=== PATIENT | male | born 1995 | race Caucasian/White ===

== ENCOUNTER 2022-10-10 20:09 | Emergency (ER) | payer BC, SELFPAY ==
--- NOTE | 2022-10-10 20:20 | W.ED.GENAD ---
Discharge Plan Discharge Details Chief Complaint: PsychEval ED Provider: Vanessa Ac Home Meds and New Rx's Prescriptions: No Action olanzapine 5 mg Tablet 5 mg PO Q6H PRN MDD 20 PRN (Reason: Agitation) lorazepam 0.5 mg Tablet 0.5 mg PO 3XD PRN cholecalciferol (vitamin D3) [Vitamin D3] 25 mcg (1,000 unit) Capsule 25 mcg PO 1XD Medical Decision Making Patient is a 27-year-old male reported to have history of schizophrenia and bipolar, brought in by state police, with concerns for manic episode. Patient was recently hospitalized at institution in [facility]. She left there and was running on a busy street. Went into a local store, was shaving in the isles, went behind the counter to try on sunglasses. Was found to be acutely manic and was taken into police custody for safety. He has not been taking any of his medications. On exam, patient is acutely manic, constantly rambling with inappropriate speech. Talking about violence and how violence are likely the downfall of the earth. Then spits on his own face and asks is this cum or venom? either way, I get to taste it. He is frequently moving. Requesting fluids. Moving all extremities. No evidence of head trauma. He is agreeable to medications. Patient spit out the p.o. Haldol because it tasted bad. Was then given liquid and reported that it was laced with cyanide. Will attempt giving him p.o. Zyprexa. Despite patient initially saying that he would be amenable to oral medications, he spit out or refused all medications offered him. We continue to try verbal de-escalation but patient is simply too manic to be able to cooperate with any medical care. At this point, please or not able to leave and patient's not can be able to be evaluated by mental health appropriately given his high manic state. We will move forward with IM Haldol. Patient was given 5 mg IM Haldol with police, nursing staff and myself present. Patient did not actually fight to have this done and did not need physical restraint during the injection. He tolerated this well and is currently sleeping but easily arousable. He did allow for blood work to be completed. Patient does have an elevated white count of 14.8. Denies any fevers, chills, headache rash, GI or URI upset. CMP without significant abnormality. Salicylates, acetaminophen ethyl alcohol negative. Urinalysis and COVID testing pending. At the end of my shift, care transition to Dr. Glass with ultimate disposition pending. Patient is involuntarily admitted. Has been sent here on a warrant, the emergency exam has been completed. One-to-one sitter is with the patient. He is resting comfortably after the IM Haldol. Mom will be in contact tomorrow but can be reached at [phone], Swathi Ck. HPI General Date/Time Provider Initiated Documentation: 10/10/22 20:20. Limitations to Documentation: altered mental status. Information obtained by: patient, police, RN/MD (MH at bedside) and RN notes reviewed. HPI Narrative: Patient brought in by mental health and police with concern for manic episode. Has been acting very erratically, not taking his medications. Was found to be running in the street. He then went into local drugstore and was acting erratically. Mental health does not feel that patient has capacity. He was recently discharged from [facility], had been in [facility] in [place], [place]. Related Data Home Medications Medication Instructions Recorded Confirmed cholecalciferol (vitamin D3) 25 25 mcg PO 1XD 10/10/22 10/10/22 mcg (1,000 unit) capsule (Vitamin D3) lorazepam 0.5 mg tablet 0.5 mg PO 3XD PRN 10/10/22 10/10/22 olanzapine 5 mg tablet 5 mg PO Q6H PRN PRN Agitation 10/10/22 10/10/22 Allergies Allergy/AdvReac Type Severity Reaction Status Date / Time No Known Allergies Allergy Unverified 10/10/22 21:53 General Stated Complaint: PsychEval YOLANDA: 2 Review of Systems Narrative: ROS limited secondary to patients current mental status Constitutional Constitutional: Reports as per HPI, Denies chills, Denies fever(s) and Denies headache(s) ENT Ears, Nose, Mouth, and Throat: Denies headache(s) Cardiovascular Cardiovascular: Reports as per HPI and Denies chest pain Respiratory Respiratory: Reports as per HPI and Denies cough Integumentary/Breasts Skin/Breast: Reports as per HPI and Denies rash Neurologic Neurologic: Denies headache(s) and Denies paresthesias Psychiatric Psychiatric: Reports mood swings, Reports paranoia, Reports homicidal ideation and Reports suicidal ideation PFSH Social History Smoking risk assessment performed?: No Exam Const General: healthy appearing, comfortable, no acute distress, well developed and disheveled Nutritional Appearance: average body habitus and well nourished Orientation: alert and awake Eyes General: appearance normal, both eyes and all related structures Pupils: PERRL Neck Neck: no meningeal signs Resp Effort & Inspection: normal respiratory effort, able to speak in complete sentences and no respiratory distress Auscultation: clear to auscultation bilaterally, no rales, no rhonchi and no wheezes Cardio Rate: regular rate Rhythm: regular rhythm Heart Sounds: S1 normal and S2 normal Skin General skin exam: no rashes or lesions noted Trauma: no lacerations or abrasions Neuro General: patient alert and patient awake Cognition: normal cognition Speech: speech normal Gait: normal gait Psych Appearance: disheveled Speech and Movement: agitated Mood: manic mood Affect: labile affect, animated and irritable affect Attitude: cooperative Thought Process: flight of ideas, illogical and tangential Thought Content: ideas of reference Insight: poor Judgment: poor Course Vital Signs Vital signs: Comment unable to obtain v/s, pt beacame agitated and refused 10/10/22 20:15
[2022-10-10] MEDS: Haloperidol 5 MG/ML VIAL 4 MG IM (22:07)
[2022-10-10 22:56] LABS: Abs Immature Grans 0.06 10^3/uL (0.0-0.06); Absolute Basophil Count 0.04 10^3/uL (0.0-0.2); Absolute Eosinophil Count 0.06 10^3/uL (0.0-0.7); Absolute Lymphocyte Count 2.41 10^3/uL (1.2-3.4); Absolute Monocyte Count 1.11 10^3/uL (0.1-0.8); Basophils % 0.3; Eosinophils % 0.4; HCT 43.8 % (40.0-50.0); HGB 14.5 g/dL (13.5-17.5); Immature Grans % 0.4; Lymphocytes % 16.3; MCH 29.7 pg (27.0-33.0); MCHC 33.1 % (32.0-36.0); MCV 90 fL (80-95); MPV 9.1 fL (8.0-11.0); Monocytes % 7.5; Neutrophils % 75.1; Platelet Count 309 10^3/uL (130-400); RBC 4.89 10^6/uL (4.36-5.78); RDW 12.4 % (11.8-14.1); RDW-SD 40.8 fL
[2022-10-10 22:58] LABS: Absolute Neutrophil Count 11.11 10^3/uL (1.2-6.7)
[2022-10-10 23:18] LABS: Acetaminophen < 2 ug/mL (10-30); Salicylate < 2.8 mg/dL (<2.8)
[2022-10-10 23:25] LABS: ALT 22 U/L (16-63); AST 15 U/L (15-37); Albumin 4.3 g/dL (3.4-5.0); Alkaline Phosphatase 64 U/L (46-116); Anion Gap 10.9 mmol/L (3-11); BUN 14 mg/dL (7-18); Bilirubin, Total 0.8 mg/dL (0.2-1.0); CO2 24.1 mmol/L (21.0-32.0); CREATININE 0.9 mg/dL (0.70-1.30); Calcium 9.3 mg/dL (8.5-10.1); Chloride 103 mmol/L (98-107); ETHANOL BLOOD < 3.0 mg/dL (<10); Estimated GFR 119.31 (mL/min/1.73m2); Glucose 119 mg/dL (74-106); Potassium 3.8 mmol/L (3.5-5.1); Sodium 138 mmol/L (136-145); TSH (W/Ref FT4) 0.81 uIU/mL (0.36-3.74); Total Protein 7.5 g/dL (6.4-8.2)
--- NOTE | 2022-10-10 23:39 | PDOC.MHCN ---
Date of service: 10/10/22 Time of Service: 20:00 Mental Health Emergency Note Release [facility] release signed:: No Reason for Visit Mental health warrant, please see warrant for more information. Client is presenting with dangerous manic behaviors. In the last 2 weeks has the pt presented for ES prior to today?: No Client Information Client is: New Non Suicidal Self Injury Current: No History: No Safety Risk/Harm to Self or Others Current Ideation to Harm Self or Others: No Risk: Does risk to harm exist?: yes. Access to means: No. Risk: Low Risk Duty to warn indicated: No Asssessment/Mental Status Appearance: Disheveled and Poor hygiene Attitude: Passive, Demanding, Guarded and Hostile Behavior: Hyperactivity, Poor impulse control and Agitated Speech: Pressured, Loud and Incoherent Affect: Inappropriate and Cogruent with mood Mood: Euphoric, Elevated and Irritable Thought process: Loose associations, Flight of ideas and Tangential Hallucinations: No Delusions: yes, Mosque, Persectory/Paranoid and Bizarre Attention: Poor concentration Perception: Derealization Orientation: Disoriented in Situation Memory: Intact Insight: Poor Judgement: Poor Neurovegetative Symptoms Sleep: No change Appetitie: No change Interests: No change Energy: No change Libido: Not applicable Substance Use: Do you use nicotine?: Yes Have you used substances in the last 7 days?: No Additional Issues: Assaultive/Threatening Behavior: No Medical Concerns: No Client engaged in active self harm w/weapon: No Threatening to run away: No Child reported abuse/neglect: No Voluntarily presenting for services: No Domestic violence is a concern: No Extreme Psychosis or extreme behavior is present: Yes Impression Client is in need of medication stabilization and emergency evaluation by psychiatrist. Please see warrant for further details of dangerous behaviors leading to hospitalization. Plan/Disposition Recommended Disposition: Hospitalization No and Psych Screening. Plan: Client will remain at [facility] on involuntary hold until seen by psychiatrist. [facility] will be sending referrals veronica, 10/10/22. Person reported agreement to plan: No Reports/communication Outcome discussed with: ED/Personnel and Other ([facility])
--- NOTE | 2022-10-11 03:31 | NUR.NOTE ---
lives at [facility]-a assisted for mental health owned by Giuseppe Bagley-who knows pt very well. Yudi's number is [phone]-has known him for 3 years. pt's therapist is Ginger Oakes [phone].Nursing Note:
--- NOTE | 2022-10-11 06:54 | ED.PROG_ITS ---
Date of service: 10/11/22 Time of Service: 08:00 Medical Decision Making 0800 --no events overnight. Patient endorsed to nursing this morning that he needs to receive his medications at specific times. His medications with specific times have been ordered. Patient had stated he also needs to see the medication as he takes the lithium which has a red stripe on it. Nursing will show patient his medications. Patient appears paranoid and has become agitated at times punching the wall this morning. A dose of Ativan 1mg p.o. ordered. Adrienne from mental [facility] also called last night to state that pt was recently staying at [facility] in [place], [place]. She stated that Raheel Sethi ([phone]) is the director of this program and patient's therapist is Ginger Warner ([phone]). Medical Records Medical records reviewed: Yes I reviewed the patient's medical records. Sign Out Sign Out Data: Sign Out Comment: Care transition to Dr. Glass. Patient is involuntarily admitted for manic episodes. Has not been taking his medications for over a week. Acting very erratic, jumping in front of cars. Patient does not have capacity to leave to be able to take care of himself. Patient is a risk to himself and others. Received IM Haldol. Is currently resting. In the preclose with sitter at bedside. Last updated by Vanessa Ac PA at 10/11/22 01:04 Discharge Plan Discharge Details Chief Complaint: PsychEval ED Provider: Summer Glass Home Meds and New Rx's Prescriptions: No Action olanzapine 5 mg Tablet 5 mg PO Q6H PRN MDD 20 PRN (Reason: Agitation) lorazepam 0.5 mg Tablet 0.5 mg PO TID@0900,1400,1999 cholecalciferol (vitamin D3) [Vitamin D3] 25 mcg (1,000 unit) Capsule 25 mcg PO DAILY@0900 olanzapine 10 mg Tablet 10 mg PO DAILY@2000 lithium carbonate 300 mg Tablet Extended Release 900 mg PO DAILY@0900
[2022-10-11] MEDS: LORazepam 1 MG TAB PO (07:12)
--- NOTE | 2022-10-11 07:26 | NUR.NOTE ---
attempted to get urine sample from pt, pt brought out cup filled with tap water. When asked why he filled the cup with water he stated what do you think pee is?. Pt was asked again to give a urine sample and he responded with I did, I peed, drank it, and put water in the cup. Unsure if pt actually consumed urine. Pt was told to not drink urine
[2022-10-11 07:59] LABS: *AMPHETAMINES SCREEN URINE Negative (Negative); *BARBITURATES SCREEN URINE Negative (Negative); *BENZODIAZEPINES SCREEN URINE Positive (Negative); Cannabinoids THC Negative (Negative); Cocaine Screen,Urine Negative (Negative); METHADONE URINE SCREEN Negative (Negative); OPIATES URINE SCREEN Negative (Negative)
[2022-10-11 08:01] LABS: Tricyclic Antidepressants Negative (Negative)
[2022-10-11] MEDS: Cholecalciferol (Vitamin D3) 1,000 UNIT TAB 1000 UNITS PO (08:16)
[2022-10-11] MEDS: LORazepam 0.5 MG TAB PO ×3 (08:16→20:58)
[2022-10-11 08:22] LABS: Source Nasal/Nares
[2022-10-11 09:18] LABS: Bilirubin Negative (Negative); Blood Negative (Negative); Clarity Clear (Clear); Glucose Negative (Negative); Ketones Negative (Negative); Leukocyte Esterase Negative (Negative); Nitrite Negative (Negative); Specific Gravity 1.025 (1.005-1.025); Urobilinogen 0.2 mg/dL (Up to 0.2)
--- NOTE | 2022-10-11 09:23 | NUR.NOTE ---
pt has ipad in room for mental health eval
[2022-10-11 09:26] LABS: Bacteria Negative HPF (Negative); Crystals Negative HPF (Negative); Epithelial Cells Rare HPF (Negative); Mucus Trace (Negative); RBC 0-2 HPF (0-2); WBC 0-2 HPF (0-5)
[2022-10-11 09:27] LABS: C & S Indicated? No; Casts Negative LPF (Negative)
[2022-10-11 09:34] LABS: COVID-19 PCR Negative (Negative)
--- NOTE | 2022-10-11 10:08 | CMSP_ITS ---
- If Service Date Differs Date of service: 10/11/22 Time of Service: 10:08 Care Management Safety Plan Status: Involuntary - Reason for Wait Reason for Wait: Inpatient Admission INVOLUNTARY FOR INPATIENT PSYCHIATRIC STABILIZATION. Safety plan has been established to meet the needs of the patient, and consideration of the care team, to adhere to patient goals, identify restrictions based on behavioral status, address nutrition, and determine allowed personal belongings, tools for hygiene and personal care. Determine level of activity including ambulation, level of supervision, visitors, and determine privileges based on behaviors and level of engagement by pt. 1600 second EE certification was approved this afternoon. Copy in ER chart. SAFETY PLAN: 1. Will remain on SI/HI precautions. In Paper Clothes 2. Will remain in room under direct supervision of one-on-one staff at all times provided by [employer]; [employer], MUD MIXER metal flooring installer. 3. May have paper cups, plates, finger foods as well as a cardboard spoon 4. Follow [facility] Management of the Admitted Behavioral Health Patient policy. 5. Comfort bath system only. 6. No personal belongings 7. Visitors: 8. Activities: 9. Bathroom privileges with supervision 10. Phone: None at this time 11. Due to INVOLUNTARY status, patient is being held at [facility] by the Department of Mental Health ([facility]) until 2nd certification by [facility] Psychiatrist can be performed (within 24 hours). Staff will provide de-escalation support (CPI) as needed. If patient wishes to leave [facility], staff will contact [facility] Crisis Screener ([phone]) and On-Call Press Puller ([phone]) as soon as possible. In the event of elopement, notify [facility] Police ([phone]). Patient is currently involuntarily at [facility]. [facility] Frontline Dairy Cattle Farm Manager will continue seeking placement. Please contact the Honing Machine Operator Production Press Puller ([phone]) for any needed changes to Safety Plan. Safety plan has been provided to interdepartmental care team. Patient will be transported by [employer] at time of discharge.
[2022-10-11] MEDS: OLANZapine 5 MG TAB PO (15:56)
[2022-10-11 16:39] VITALS: BP 117/75; PULSE 94; RESP 16; O2SAT 97
[2022-10-11] MEDS: OLANZapine 10 MG TAB PO (19:56)
[2022-10-12 05:10] VITALS: BP 109/75; PULSE 94; RESP 18; TEMP 36.5; O2SAT 95
[2022-10-12] MEDS: LORazepam 1 MG TAB 2 MG PO ×2 (05:18→21:46)
--- NOTE | 2022-10-12 08:02 | CMSP_ITS ---
- If Service Date Differs Date of service: 10/12/22 Time of Service: 08:02 Care Management Safety Plan Status: Involuntary - Reason for Wait Reason for Wait: Inpatient Admission Safety plan has been established to meet the needs of the patient, and consideration of the care team, to adhere to patient goals, identify restrictions based on behavioral status, address nutrition, and determine allowed personal belongings, tools for hygiene and personal care. Determine level of activity including ambulation, level of supervision, visitors, and determine privileges based on behaviors and level of engagement by pt. Second EE certification was approved 10/11/22. Copy in ER chart. KODI spoke with Misty at [facility] the plan is for [facility] to work with [facility] Thursday to try to get José Miguel into level 1 treatment center. SAFETY PLAN: 1. Will remain on SI/HI precautions. In Paper Clothes 2. Will remain in room under direct supervision of one-on-one staff at all times provided by [employer]; [employer], OFFICE HELPER customs port director. 3. May have paper cups, plates, finger foods as well as a cardboard spoon 4. Follow [facility] Management of the Admitted Behavioral Health Patient policy. 5. Comfort bath system only. 6. No personal belongings 7. Visitors: 8. Activities: 9. Bathroom privileges with supervision 10. Phone: None at this time 11. Due to INVOLUNTARY status, patient is being held at [facility] by the Department of Mental Health ([facility]) until 2nd certification by [facility] Psychiatrist can be performed (within 24 hours). Staff will provide de-escalation support (CPI) as needed. If patient wishes to leave [facility], staff will contact [facility] Crisis Screener ([phone]) and On-Call Air Defence Officer ([phone]) as soon as possible. In the event of elopement, notify [place] State Police ([phone]). Patient is currently involuntarily at [facility]. [facility] Frontline Heating And Ventilating Tender will continue seeking placement. Please contact the Cytogenetic Technician Air Defence Officer ([phone]) for any needed changes to Safety Plan. Safety plan has been provided to interdepartmental care team. Patient will be transported by [employer] at time of discharge.
--- NOTE | 2022-10-12 08:02 | PDOC.CMSAFED ---
- If Service Date Differs Date of service: 10/12/22 Time of Service: 08:02 Care Management Safety Plan Status: Involuntary - Reason for Wait Reason for Wait: Inpatient Admission Safety plan has been established to meet the needs of the patient, and consideration of the care team, to adhere to patient goals, identify restrictions based on behavioral status, address nutrition, and determine allowed personal belongings, tools for hygiene and personal care. Determine level of activity including ambulation, level of supervision, visitors, and determine privileges based on behaviors and level of engagement by pt. Second EE certification was approved 10/11/22. Copy in ER chart. KODI spoke with Misty at [facility] the plan is for [facility] to work with [facility] Thursday to try to get José Miguel into level 1 treatment center. SAFETY PLAN: 1. Will remain on SI/HI precautions. In Paper Clothes 2. Will remain in room under direct supervision of one-on-one staff at all times provided by [employer]; ADE[employer], SET UP OPERATOR prepress supervisor. 3. May have paper cups, plates, finger foods as well as a cardboard spoon 4. Follow [facility] Management of the Admitted Behavioral Health Patient policy. 5. Comfort bath system only. 6. No personal belongings 7. Visitors: 8. Activities: 9. Bathroom privileges with supervision 10. Phone: None at this time 11. Due to INVOLUNTARY status, patient is being held at [facility] by the Department of Mental Health ([facility]) until 2nd certification by [facility] Psychiatrist can be performed (within 24 hours). Staff will provide de-escalation support (CPI) as needed. If patient wishes to leave [facility], staff will contact [facility] Crisis Screener ([phone]) and On-Call Veneer Press Operator ([phone]) as soon as possible. In the event of elopement, notify [place] State Police ([phone]). Patient is currently involuntarily at [facility]. [facility] Frontline Parts Salesman will continue seeking placement. Please contact the Heel Brusher Veneer Press Operator ([phone]) for any needed changes to Safety Plan. Safety plan has been provided to interdepartmental care team. Patient will be transported by [employer] at time of discharge.
[2022-10-12] MEDS: LORazepam 0.5 MG TAB PO ×3 (08:15→21:25)
[2022-10-12] MEDS: Cholecalciferol (Vitamin D3) 1,000 UNIT TAB 1000 UNITS PO (08:15)
--- NOTE | 2022-10-12 11:53 | NUR.NOTE ---
Patient attempted to push staff emergency button on wall. Patient was redirectable however began hitting his head against the metal wall as well as the glass door of his room. Patient then stated he's manic somebody get him some meds. and began pacing around room again. After pacing for 3 minutes the patient began punching the mattress on his bed.
[2022-10-12 13:56] VITALS: BP 92/60; PULSE 83; RESP 16
[2022-10-12] MEDS: OLANZapine 5 MG TAB PO (15:49)
--- NOTE | 2022-10-12 16:16 | NUR.NOTE ---
Nursing Note: Pt using tablet in room and asked permission to go on [employer] He stated well the last person let me. This financial underwriter reminded patient he is only allowed to use Cebolla+. The patient agreed to only use Herman+.
[2022-10-12] MEDS: OLANZapine 10 MG TAB PO (20:04)
[2022-10-12 21:29] VITALS: BP 115/79; PULSE 97; RESP 18; O2SAT 96
--- NOTE | 2022-10-12 21:43 | NUR.NOTE ---
Nursing Note: Pt activity is ramping up at this time. Pt is boxing the air and punching the bed. Pt reminded that this behavior is not appropriate and he states that he cannot help it. Dr Joyner notified and new orders received.
[2022-10-12] MEDS: diphenhydrAMINE 25 MG CAP 50 MG PO (21:46)
--- NOTE | 2022-10-12 21:58 | NUR.NOTE ---
Nursing Note: Report given to Shauna OCONNOR
--- NOTE | 2022-10-12 22:37 | NUR.NOTE ---
Report received from ELVIN Burgos. Pt compliant with taking stat PO meds. Is awake sitting on bed at time of report. 1:1 monitoring continues per protocol.
--- NOTE | 2022-10-13 07:18 | NUR.NOTE ---
Nursing Note: Report received from offgoing patient safety observer. Discussed day with pt and medications (scheduled and PRN), and reviewed pt safety plan. Continuing 1-1 observation as per order.
[2022-10-13] MEDS: LORazepam 1 MG TAB 2 MG PO (08:01)
[2022-10-13] MEDS: Cholecalciferol (Vitamin D3) 1,000 UNIT TAB 1000 UNITS PO (10:17)
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
[2022-10-13] MEDS: LORazepam 0.5 MG TAB PO ×2 (10:50→20:09)
--- NOTE | 2022-10-13 15:26 | CMSP_ITS ---
- If Service Date Differs Date of service: 10/13/22 Time of Service: 15:26 Care Management Safety Plan Status: Involuntary - Reason for Wait Reason for Wait: Inpatient Admission Safety plan has been established to meet the needs of the patient, and consideration of the care team, to adhere to patient goals, identify restrictions based on behavioral status, address nutrition, and determine allowed personal belongings, tools for hygiene and personal care. Determine level of activity including ambulation, level of supervision, visitors, and determine privileges based on behaviors and level of engagement by pt. Second EE certification was approved 10/11/22. Copy in ER chart. SAFETY PLAN: 1. Will remain on SI/HI precautions. In Paper Clothes 2. Will remain in room under direct supervision of one-on-one staff at all times provided by [employer]; ADELA, BAR MANAGER senior economist. 3. May have paper cups, plates, finger foods as well as a cardboard spoon 4. Follow [facility] Management of the Admitted Behavioral Health Patient policy. 5. Comfort bath system only. 6. No personal belongings 7. Visitors: at RN discretion 8. Activities: soft cart items, at RN discretion 9. Bathroom privileges with supervision 10. Phone: Ingoing/Outgoing using hospital phone, at RN discretion. 11. Due to INVOLUNTARY status, patient is being held at [facility] by the Department of Mental Health ([facility]) until 2nd certification by [facility] Psychiatrist can be performed (within 24 hours). Staff will provide de-escalation support (CPI) as needed. If patient wishes to leave [facility], staff will contact [facility] Crisis Screener ([phone]) and On-Call Software Development Leader ([phone]) as soon as possible. In the event of elopement, notify [place] [employer] ([phone]). Patient is currently involuntarily at [facility]. [facility] Frontline Systems Integration Engineer will continue seeking placement. Please contact the Air Carrier Maintenance Inspector Software Development Leader ([phone]) for any needed changes to Safety Plan. Safety plan has been provided to interdepartmental care team. Patient will be transported by [employer] at time of discharge.
--- NOTE | 2022-10-13 15:26 | PDOC.CMSAFED ---
- If Service Date Differs Date of service: 10/13/22 Time of Service: 15:26 Care Management Safety Plan Status: Involuntary - Reason for Wait Reason for Wait: Inpatient Admission Safety plan has been established to meet the needs of the patient, and consideration of the care team, to adhere to patient goals, identify restrictions based on behavioral status, address nutrition, and determine allowed personal belongings, tools for hygiene and personal care. Determine level of activity including ambulation, level of supervision, visitors, and determine privileges based on behaviors and level of engagement by pt. Second EE certification was approved 10/11/22. Copy in ER chart. SAFETY PLAN: 1. Will remain on SI/HI precautions. In Paper Clothes 2. Will remain in room under direct supervision of one-on-one staff at all times provided by [employer]PSO; ADELA, LADLE CAR OPERATOR infection prevention coordinator. 3. May have paper cups, plates, finger foods as well as a cardboard spoon 4. Follow [facility] Management of the Admitted Behavioral Health Patient policy. 5. Comfort bath system only. 6. No personal belongings 7. Visitors: at RN discretion 8. Activities: soft cart items, at RN discretion 9. Bathroom privileges with supervision 10. Phone: Ingoing/Outgoing using hospital phone, at RN discretion. 11. Due to INVOLUNTARY status, patient is being held at [facility] by the Department of Mental Health ([facility]) until 2nd certification by [facility] Psychiatrist can be performed (within 24 hours). Staff will provide de-escalation support (CPI) as needed. If patient wishes to leave [facility], staff will contact [facility] Crisis Screener ([phone]) and On-Call Business Operations Manager ([phone]) as soon as possible. In the event of elopement, notify [place] [employer] ([phone]). Patient is currently involuntarily at [facility]. [facility] Frontline Residential Team Leader will continue seeking placement. Please contact the Warp Scouring Vat Tender Business Operations Manager ([phone]) for any needed changes to Safety Plan. Safety plan has been provided to interdepartmental care team. Patient will be transported by [employer] at time of discharge.
--- NOTE | 2022-10-13 15:28 | CMPROGNOTE_ITS ---
- If Service Date Differs Date of service: 10/13/22 Time of Service: 15:28 Care Management Progress Note 9:30am- CM called [facility] for an update. ERICA Gamez, stated that José Miguel would be screened shortly. CM checked in with ED staff, and José Miguel was being screened via zoom by Shala. 11am- KODI talked to ERICA Gamez, who stated that BR is reviewing the referral. Vera stated that she plans to reach out to [facility] Hospital Cook, Nnamdi, for support in obtaining placement for José Miguel in a level one facility. CM will continue to follow. 3:45pm- CM called [facility] asking for an update. ERICA Gamez, stated that there are no updates currently. Nnamdi [facility] was outreached, no return call at this time. She will reach out to again regarding his referral. CM will continue to follow.
--- NOTE | 2022-10-13 16:16 | W.EDPROG ---
Date of service: 10/13/22 Time of Service: 16:16 Medical Decision Making Care was signed out by Dr. Joyner with plan to follow-up on mental health recommendations. Patient is here with acute psychosis. He has had flight of ideas and been tangential in thought process. He is here on involuntary hold. Patient has remained relatively stable. Patient continues to await placement. Sign Out Sign Out Data: Sign Out Comment: Care transition to Dr. Glass. Patient is involuntarily admitted for manic episodes. Has not been taking his medications for over a week. Acting very erratic, jumping in front of cars. Patient does not have capacity to leave to be able to take care of himself. Patient is a risk to himself and others. Received IM Haldol. Is currently resting. In the preclose with sitter at bedside. Last updated by Vanessa Ac PA at 10/11/22 01:04 Sign Out Comment: EE. Second certificate likely this evening. No events overnight although patient became agitated this morning and ativan PO ordered. Continue to monitor while awaiting placement. Last updated by Summer Glass DO at 10/11/22 08:34 Sign Out Comment: manic, si; EE, second cert complete, awaiting placement Last updated by Raheel Montelongo MD at 10/11/22 19:55 Sign Out Comment: Patient stable throughout the night. No interventions needed. 2 mg of Ativan was given at patient request in the morning Last updated by Mariusz Joyner DO at 10/12/22 07:36 Sign Out Comment: EE, awaiting placement Last updated by Raheel Montelongo MD at 10/12/22 20:13 Sign Out Comment: Patient stable throughout the night. No interventions needed. Last updated by Mariusz Joyner DO at 10/13/22 07:40 Discharge Plan Discharge Details Chief Complaint: PsychEval Primary Care Provider: Mini,Local ED Provider: Vishal Young Home Meds and New Rx's Prescriptions: No Action olanzapine 5 mg Tablet 5 mg PO Q6H PRN MDD 20 PRN (Reason: Agitation) lorazepam 0.5 mg Tablet 0.5 mg PO TID@0900,1400,2000 cholecalciferol (vitamin D3) [Vitamin D3] 25 mcg (1,000 unit) Capsule 25 mcg PO DAILY@0900 olanzapine 10 mg Tablet 10 mg PO DAILY@2000 lithium carbonate 300 mg Tablet Extended Release 900 mg PO DAILY@0900
[2022-10-13] MEDS: OLANZapine 5 MG TAB PO (16:53)
--- NOTE | 2022-10-13 18:18 | NUR.NOTE ---
Nursing Note: patient excitable but redirectable. He is able to express that he knows he is feeling wound up. Asking to call sister or farther for support, as he notes they are stabilizing forces for him. Per safety plan, patient is able to have outgoing calls at RN discretion. Attempted calling sister, who did not answer. Patient agreeable to phone rules, and to trying to call later in the evening with med pass.
[2022-10-13] MEDS: OLANZapine 10 MG TAB PO (20:09)
--- NOTE | 2022-10-13 22:25 | W.EDPROG ---
Date of service: 09/15/22 Time of Service: 16:30 Medical Decision Making 1630 --please see previous provider's notes for initial presentation, exam and plan. Case endorsed to continue to monitor while awaiting placement. 2300 --patient had a few outbursts today which responded to redirection and prn medications. Case endorsed to Dr. Joyner to continue to monitor while awaiting placement. Medical Records Medical records reviewed: Yes I reviewed the patient's medical records. Sign Out Sign Out Data: Sign Out Comment: Care transition to Dr. Glass. Patient is involuntarily admitted for manic episodes. Has not been taking his medications for over a week. Acting very erratic, jumping in front of cars. Patient does not have capacity to leave to be able to take care of himself. Patient is a risk to himself and others. Received IM Haldol. Is currently resting. In the preclose with sitter at bedside. Last updated by Vanessa Ac PA at 10/11/22 01:04 Sign Out Comment: EE. Second certificate likely this evening. No events overnight although patient became agitated this morning and ativan PO ordered. Continue to monitor while awaiting placement. Last updated by Summer Glass DO at 10/11/22 08:34 Sign Out Comment: manic, si; EE, second cert complete, awaiting placement Last updated by Raheel Montelongo MD at 10/11/22 19:55 Sign Out Comment: Patient stable throughout the night. No interventions needed. 2 mg of Ativan was given at patient request in the morning Last updated by Mariusz Joyner DO at 10/12/22 07:36 Sign Out Comment: EE, awaiting placement Last updated by Raheel Montelongo MD at 10/12/22 20:13 Sign Out Comment: Patient stable throughout the night. No interventions needed. Last updated by Mariusz Joyner DO at 10/13/22 07:40 Sign Out Comment: awaiting psych placement. Last updated by Vishal Young MD at 10/13/22 16:18 Discharge Plan Discharge Details Chief Complaint: PsychEval Primary Care Provider: No,Local ED Provider: Summer Glass Home Meds and New Rx's Prescriptions: No Action olanzapine 5 mg Tablet 5 mg PO Q6H PRN MDD 20 PRN (Reason: Agitation) lorazepam 0.5 mg Tablet 0.5 mg PO TID@0900,1400,1999 cholecalciferol (vitamin D3) [Vitamin D3] 25 mcg (1,000 unit) Capsule 25 mcg PO DAILY@0900 olanzapine 10 mg Tablet 10 mg PO DAILY@2000 lithium carbonate 300 mg Tablet Extended Release 900 mg PO DAILY@0900
--- NOTE | 2022-10-14 00:44 | NUR.NOTE ---
Nursing Note:Pt ROBERTA to take a shower. Security with pt while ROBERTA.
--- NOTE | 2022-10-14 01:13 | NUR.NOTE ---
Nursing Note: pT was provided with a shower, on the second floor, with a security operations manager. shower on 10/14/22, around 0915-1222.
[2022-10-14] MEDS: LORazepam 1 MG TAB 2 MG PO (02:00)
[2022-10-14] MEDS: Cholecalciferol (Vitamin D3) 1,000 UNIT TAB 1000 UNITS PO (10:44)
[2022-10-14] MEDS: LORazepam 0.5 MG TAB PO ×3 (10:44→19:57)
--- NOTE | 2022-10-14 14:24 | CMSP_ITS ---
- If Service Date Differs Date of service: 10/14/22 Time of Service: 14:24 Care Management Safety Plan Status: Involuntary - Reason for Wait Reason for Wait: Inpatient Admission Safety plan has been established to meet the needs of the patient, and consideration of the care team, to adhere to patient goals, identify restrictions based on behavioral status, address nutrition, and determine allowed personal belongings, tools for hygiene and personal care. Determine level of activity including ambulation, level of supervision, visitors, and determine privileges based on behaviors and level of engagement by pt. Second EE certification was approved 10/11/22. Copy in ER chart. A decentralized huddle is held with nursing cottage supervisor and ED staff. SAFETY PLAN: 1. Will remain on SI/HI precautions. In Paper Clothes 2. Will remain in room under direct supervision of one-on-one staff at all times provided by CPSO, PICK AND SHOVEL WORKER, HORSEBACK RIDING INSTRUCTOR instrument assembly supervisor. 3. May have paper cups, plates, finger foods as well as a cardboard spoon to eat meals. 4. Follow [facility] Management of the Admitted Behavioral Health Patient policy. 5. Comfort bath system only at this time. 6. No personal belongings. 7. Visitors: Per [facility] visitor policy and at RN discretion. 8. Activities: soft cart items, music tablet, and other activities at RN discretion. 9. Bathroom privileges with supervision. 10. Phone: Incoming/outgoing phone calls using hospital cordless phone, at RN discretion. 11. Due to INVOLUNTARY status, patient is being held at [facility] by the Department of Mental Health ([facility]) until 2nd certification by [facility] Psychiatrist can be performed (within 24 hours). Staff will provide de-escalation support (CPI) as needed. If patient wishes to leave [facility], staff will contact [facility] Crisis Screener ([phone]) and On-Call Plastics Worker ([phone]) as soon as possible. In the event of elopement, notify [place] [employer] ([phone]). Patient is currently involuntarily at [facility]. [facility] Frontline Duct Layer will continue seeking placement. Please contact the Accounts Payable Administrator Plastics Worker ([phone]) for any needed changes to Safety Plan. Safety plan has been provided to interdepartmental care team. Patient will be transported by [facility] at time of discharge.
--- NOTE | 2022-10-14 14:24 | PDOC.CMSAFED ---
- If Service Date Differs Date of service: 10/14/22 Time of Service: 14:24 Care Management Safety Plan Status: Involuntary - Reason for Wait Reason for Wait: Inpatient Admission Safety plan has been established to meet the needs of the patient, and consideration of the care team, to adhere to patient goals, identify restrictions based on behavioral status, address nutrition, and determine allowed personal belongings, tools for hygiene and personal care. Determine level of activity including ambulation, level of supervision, visitors, and determine privileges based on behaviors and level of engagement by pt. Second EE certification was approved 10/11/22. Copy in ER chart. A decentralized huddle is held with nursing supervisor tellers and ED staff. SAFETY PLAN: 1. Will remain on SI/HI precautions. In Paper Clothes 2. Will remain in room under direct supervision of one-on-one staff at all times provided by CPSO, NETWORK MANAGER, FREIGHT SALES BROKER instructor adjunct surgical technician. 3. May have paper cups, plates, finger foods as well as a cardboard spoon to eat meals. 4. Follow [facility] Management of the Admitted Behavioral Health Patient policy. 5. Comfort bath system only at this time. 6. No personal belongings. 7. Visitors: Per [facility] visitor policy and at RN discretion. 8. Activities: soft cart items, music tablet, and other activities at RN discretion. 9. Bathroom privileges with supervision. 10. Phone: Incoming/outgoing phone calls using hospital cordless phone, at RN discretion. 11. Due to INVOLUNTARY status, patient is being held at [facility] by the Department of Mental Health ([facility]) until 2nd certification by [facility] Psychiatrist can be performed (within 24 hours). Staff will provide de-escalation support (CPI) as needed. If patient wishes to leave [facility], staff will contact [facility] Crisis Screener ([phone]) and On-Call Automation And Controls Instructor ([phone]) as soon as possible. In the event of elopement, notify [place] [employer] ([phone]). Patient is currently involuntarily at [facility]. [facility] Frontline Eligibility Clerk will continue seeking placement. Please contact the Venture Capitalist Automation And Controls Instructor ([phone]) for any needed changes to Safety Plan. Safety plan has been provided to interdepartmental care team. Patient will be transported by [facility] at time of discharge.
--- NOTE | 2022-10-14 14:27 | PDOC.MHPN2 ---
Date of service: 10/14/22 Time of Service: 14:27 Mental Health Emergency Note Release [facility] release signed:: Yes Reason for Visit Client presented to [facility] ED on 3.3, on mental health warrant with the assistance of VSP and embedded MH worker Katharine Contreras. Client's chief complaint was presenting with dangerous manic behaviors. This is his re-assessment and is done face to face. In the last 2 weeks has the pt presented for ES prior to today?: Unknown Client Information Client is: New Well Housed: No,status: Not homeless, Unstable housing Non Suicidal Self Injury Current: No History: No Safety Risk/Harm to Self or Others Current Ideation to Harm Self or Others: No Risk: Does risk to harm exist?: yes. Access to means: No. Risk: High Risk Duty to warn indicated: No Asssessment/Mental Status Appearance: Disheveled Attitude: Cooperative Behavior: Agitated Speech: Normal Affect: Flat Mood: Stressed, Anxious and Irritable Thought process: Loose associations, Flight of ideas and Tangential Hallucinations: No Delusions: yes, Persectory/Paranoid Attention: Wandering Perception: Derealization Orientation: Disoriented in (situation and treatment placements) Situation Memory: Intact Insight: Poor Judgement: Poor Neurovegetative Symptoms Sleep: No change Appetitie: Increase Interests: No change Energy: Increase Libido: Not applicable Substance Use: Do you use nicotine?: Yes Have you used substances in the last 7 days?: No Additional Issues: Assaultive/Threatening Behavior: No Medical Concerns: No Client engaged in active self harm w/weapon: No Threatening to run away: No Child reported abuse/neglect: No Voluntarily presenting for services: No Domestic violence is a concern: No Impression Client is a 27 year old, single, male who was previously living at [facility] however, due to his not taking medications and mental health deterioration the client was acting out in bizarre ways in the community i.e. opening a package of razors at a drug store and trying to shave his mckeon and then going behind the store counter and trying on sunglasses and as a result the client was asked to not return until he has received treatment and stabilized. Client is unknown to [facility]. Client has been refusing to complete intake paperwork.. Client is currently on involuntary status on MH warrant awaiting for placement. Client's second certification passed.? There was a pci security consultant in the client's room this am when this clinician arrived reminding him that he needs to keep the [facility] tablet in his room or he will not be able to use it. It is reported that he needs frequent redirections and responds well. Plan/Disposition Recommended Disposition: Hospitalization facilities contacted. Plan: Client will remain at [facility] pending acceptance to a treatment facility or unless his symptoms decrease where he can safety plan back home. Person reported agreement to plan: Yes Facilities contacted if Applicable [facility] Not accepted, No bed available [facility] Not accepted, No bed available [facility] Not accepted, No bed available, [facility] Not accepted, No bed available Reports/communication Outcome discussed with: ED/Personnel
--- NOTE | 2022-10-14 14:30 | CMPROGNOTE_ITS ---
- If Service Date Differs Date of service: 10/14/22 Time of Service: 14:30 Care Management Progress Note S/O: Stan is sitting up in bed when CM comes to see him. He is pleasant and talkative. He states he has been at [facility] for 5 days (today is actually day 4) and wonders how much longer it will be before he is let out of this cage, referring to the room he is staying in. He makes good eye contact, speech is mildly pressured, and thought content is of a episcopalian nature. He requests a shower and CM advises him he can have disposable cleansing towelettes to wash up with but may not shower at this time. We discuss the reason for this is an inappropriate comment Stan made to the database security administrator last evening on his way to the shower room. Stan explains he was joking around when he told the database security administrator he could take the pen out of his shirt pocket and stab him 3 different ways with it. Stan is, however, accepting of this limit. A: Stan is a 27 year old male who remains at [facility] awaiting an involuntary psych placement. P: Stan is reassessed by [facility] crisis screener, this morning. He will remain at [facility] on involuntary status and will be reassessed by [facility] twice daily until a psych bed can be secured for him. CM will continue to follow. - Status Status: Involuntary - Reason for Wait Reason for Wait: Inpatient Admission
[2022-10-14] MEDS: OLANZapine 5 MG TAB PO (15:24)
--- NOTE | 2022-10-14 16:03 | NUR.NOTE ---
Nursing Note: Sister Natalie [phone] Father Moises [phone]
[2022-10-14] MEDS: OLANZapine 10 MG TAB PO (19:57)
[2022-10-14] MEDS: diphenhydrAMINE 25 MG CAP 50 MG PO (22:04)
--- NOTE | 2022-10-14 22:18 | NUR.NOTE ---
Nursing Note: Pt given his night meds (Benadryl) no other needs or complaints at this time, sitter remains at bedside
--- NOTE | 2022-10-15 01:34 | NUR.NOTE ---
Nursing Note: pt sleeping
[2022-10-15] MEDS: LORazepam 0.5 MG TAB PO ×2 (02:33→14:46)
--- NOTE | 2022-10-15 02:34 | NUR.NOTE ---
Nursing Note:pt punching the bed, states that he feels like he will run out of the room, states i can't be here in this room any more pt asking for ativan, po ativan given
[2022-10-15] MEDS: LORazepam 1 MG TAB 2 MG PO (02:45)
[2022-10-15] MEDS: OLANZapine 10 MG TAB PO (02:50)
--- NOTE | 2022-10-15 03:23 | NUR.NOTE ---
Nursing Note:Update given to state [place] for mental health, pt has been getting more restless and agitated as time goes by, pt will come out of the room, punch and hit the cabinet aware and medicated
[2022-10-15 07:49] VITALS: BP 119/85; PULSE 76; RESP 14; TEMP 36.3; O2SAT 97
--- NOTE | 2022-10-15 08:41 | CMSP_ITS ---
- If Service Date Differs Date of service: 10/15/22 Time of Service: 08:41 Care Management Safety Plan Status: Involuntary - Reason for Wait Reason for Wait: Inpatient Admission Safety plan has been established to meet the needs of the patient, and consideration of the care team, to adhere to patient goals, identify restrictions based on behavioral status, address nutrition, and determine allowed personal belongings, tools for hygiene and personal care. Determine level of activity including ambulation, level of supervision, visitors, and determine privileges based on behaviors and level of engagement by pt. Second EE certification was approved 10/11/22. Copy in ER chart. A decentralized huddle is held with nursing supervisor alum plant and ED staff. SAFETY PLAN: 1. Will remain on SI/HI precautions. In Paper Clothes 2. Will remain in room under direct supervision of one-on-one staff at all times provided by [employer], DIRECT SALES PROFESSIONAL, TUBE MAN implementation coordinator. 3. May have paper cups, plates, finger foods as well as a cardboard spoon to eat meals. 4. Follow [facility] Management of the Admitted Behavioral Health Patient policy. 5. Comfort bath system only at this time. 6. No personal belongings. 7. Visitors: Per [facility] visitor policy and at RN discretion. 8. Activities: soft cart items, music tablet, and other activities at RN discretion. 9. Bathroom privileges with supervision. 10. Phone: Incoming/outgoing phone calls using hospital cordless phone, at RN discretion. 11. Due to INVOLUNTARY status, patient is being held at [facility] by the Department of Mental Health ([facility]) until 2nd certification by [facility] Psychiatrist can be performed (within 24 hours). Staff will provide de-escalation support (CPI) as needed. If patient wishes to leave [facility], staff will contact [facility] Crisis Screener ([phone]) and On-Call Wood Crafter ([phone]) as soon as possible. In the event of elopement, notify [place] [employer] Police ([phone]). Patient is currently involuntarily at [facility]. [facility] Frontline Social Sciences Department Chair will continue seeking placement. Please contact the Greenskeeper Wood Crafter ([phone]) for any needed changes to Safety Plan. Safety plan has been provided to interdepartmental care team. Patient will be transported by [facility] at time of discharge.
--- NOTE | 2022-10-15 08:41 | PDOC.CMSAFED ---
- If Service Date Differs Date of service: 10/15/22 Time of Service: 08:41 Care Management Safety Plan Status: Involuntary - Reason for Wait Reason for Wait: Inpatient Admission Safety plan has been established to meet the needs of the patient, and consideration of the care team, to adhere to patient goals, identify restrictions based on behavioral status, address nutrition, and determine allowed personal belongings, tools for hygiene and personal care. Determine level of activity including ambulation, level of supervision, visitors, and determine privileges based on behaviors and level of engagement by pt. Second EE certification was approved 10/11/22. Copy in ER chart. A decentralized huddle is held with nursing tree trimming supervisor and ED staff. SAFETY PLAN: 1. Will remain on SI/HI precautions. In Paper Clothes 2. Will remain in room under direct supervision of one-on-one staff at all times provided by [employer], VEHICLE MAINTENANCE TECHNICIAN, TECHNICAL MAINTENANCE TECHNICIAN estate planning counselor. 3. May have paper cups, plates, finger foods as well as a cardboard spoon to eat meals. 4. Follow [facility] Management of the Admitted Behavioral Health Patient policy. 5. Comfort bath system only at this time. 6. No personal belongings. 7. Visitors: Per [facility] visitor policy and at RN discretion. 8. Activities: soft cart items, music tablet, and other activities at RN discretion. 9. Bathroom privileges with supervision. 10. Phone: Incoming/outgoing phone calls using hospital cordless phone, at RN discretion. 11. Due to INVOLUNTARY status, patient is being held at [facility] by the Department of Mental Health ([facility]) until 2nd certification by [facility] Psychiatrist can be performed (within 24 hours). Staff will provide de-escalation support (CPI) as needed. If patient wishes to leave [facility], staff will contact [facility] Crisis Screener ([phone]) and On-Call Parts Sales Advisor ([phone]) as soon as possible. In the event of elopement, notify [place] [employer] Police ([phone]). Patient is currently involuntarily at [facility]. [facility] Frontline Slubber Frame Changer will continue seeking placement. Please contact the [employer] Sales Advisor ([phone]) for any needed changes to Safety Plan. Safety plan has been provided to interdepartmental care team. Patient will be transported by [facility] at time of discharge.
--- NOTE | 2022-10-15 09:11 | W.EDPROG ---
Date of service: 10/15/22 Time of Service: 09:11 Medical Decision Making patient on EE status for lev, currently calm and sleeping in his room without complaints. Will continue to monitor until a bed is found. Sign Out Sign Out Data: Sign Out Comment: Care transition to Dr. Glass. Patient is involuntarily admitted for manic episodes. Has not been taking his medications for over a week. Acting very erratic, jumping in front of cars. Patient does not have capacity to leave to be able to take care of himself. Patient is a risk to himself and others. Received IM Haldol. Is currently resting. In the preclose with sitter at bedside. Last updated by Vanessa Ac PA at 10/11/22 01:04 Sign Out Comment: EE, awaiting placement Last updated by Raheel Montelongo MD at 10/14/22 20:01 Sign Out Comment: Patient did require additional Ativan and Zyprexa last night as he was becoming more aggressive. Pending placement Last updated by Mariusz Joyner DO at 10/15/22 07:18 Sign Out Comment: EE. Second certificate likely this evening. No events overnight although patient became agitated this morning and ativan PO ordered. Continue to monitor while awaiting placement. Last updated by Summer Glass DO at 10/11/22 08:34 Sign Out Comment: manic, si; EE, second cert complete, awaiting placement Last updated by Raheel Montelongo MD at 10/11/22 19:55 Sign Out Comment: Patient stable throughout the night. No interventions needed. 2 mg of Ativan was given at patient request in the morning Last updated by Mariusz Joyner DO at 10/12/22 07:36 Sign Out Comment: EE, awaiting placement Last updated by Raheel Montelongo MD at 10/12/22 20:13 Sign Out Comment: Patient stable throughout the night. No interventions needed. Last updated by Mariusz Joyner DO at 10/13/22 07:40 Sign Out Comment: awaiting psych placement. Last updated by Vishal Young MD at 10/13/22 16:18 Sign Out Comment: Pt had a few yelling and laughing outbursts today but able to respond to redirection and prn medications. Awaiting placement. Last updated by Summer Glass DO at 10/13/22 22:53 Sign Out Comment: Patient stable throughout the night. No interventions needed Last updated by Mariusz Joyner DO at 10/14/22 08:22 Discharge Plan Disposition Condition: Stable Discharge Details Chief Complaint: PsychEval ED Provider: Arian Torre Home Meds and New Rx's Prescriptions: No Action olanzapine 5 mg Tablet 5 mg PO Q6H PRN MDD 20 PRN (Reason: Agitation) lorazepam 0.5 mg Tablet 0.5 mg PO TID@0900,1400,2000 cholecalciferol (vitamin D3) [Vitamin D3] 25 mcg (1,000 unit) Capsule 25 mcg PO DAILY@0900 olanzapine 10 mg Tablet 10 mg PO DAILY@2000 lithium carbonate 300 mg Tablet Extended Release 900 mg PO DAILY@0900
[2022-10-15] MEDS: Cholecalciferol (Vitamin D3) 1,000 UNIT TAB 1000 UNITS PO (09:12)
[2022-10-15 11:45] VITALS: BP 119/85; PULSE 76; RESP 14; TEMP 36.3; O2SAT 97
--- NOTE | 2022-10-15 14:47 | CMPROGNOTE_ITS ---
- If Service Date Differs Date of service: 10/15/22 Time of Service: 14:47 Care Management Progress Note DISPOSITION: Stan is accepted for an involuntary inpatient psych admission by the [facility]. He will follow up with [facility], community providers and plan of care as instructed upon discharge from the [facility]. Transportation to [place] is provided by the [facility], arranged by [facility]. - Status Status: Involuntary - Reason for Wait Reason for Wait: Inpatient Admission (Accepted for placement by the [facility])
--- NOTE | 2022-10-15 14:47 | PDOC.ERCMPRO ---
- If Service Date Differs Date of service: 10/15/22 Time of Service: 14:47 Care Management Progress Note DISPOSITION: Stan is accepted for an involuntary inpatient psych admission by the [facility]. He will follow up with [facility], community providers and plan of care as instructed upon discharge from the [place]. Transportation to [place] is provided by the [facility], arranged by [facility]. - Status Status: Involuntary - Reason for Wait Reason for Wait: Inpatient Admission (Accepted for placement by the [facility])
--- NOTE | 2022-10-15 17:55 | PDOC.MHPN2 ---
Date of service: 10/15/22 Time of Service: 17:56 Mental Health Emergency Note Release [facility] release signed:: No Reason for Visit Client presented to [facility] ED on 3.3, on mental health warrant with the assistance of VSP and embedded MH worker Katharine Contreras. Client's chief complaint was presenting with dangerous manic behaviors. This is his re-assessment and is done face to face. In the last 2 weeks has the pt presented for ES prior to today?: Unknown Client Information Client is: New Well Housed: No,status: Not homeless, Unstable housing Non Suicidal Self Injury Current: No History: No Safety Risk/Harm to Self or Others Current Ideation to Harm Self or Others: No Risk: Does risk to harm exist?: yes. Access to means: No. Risk: Moderate Risk Duty to warn indicated: No Asssessment/Mental Status Appearance: Disheveled Attitude: Cooperative and Passive Behavior: Other (Client accepted a Zyprexa orally and so is not resting peacefully. ) Speech: Soft and Slurred Affect: Flat Mood: Other (sleepy) Thought process: Poverty of content Hallucinations: No Delusions: No Attention: Poor concentration Perception: Other Orientation: Fully orientated Memory: Intact Insight: Fair Judgement: Fair Neurovegetative Symptoms Sleep: Increase Appetitie: Increase Interests: Increase Energy: Increase Libido: Not applicable Substance Use: Do you use nicotine?: Yes Have you used substances in the last 7 days?: No Additional Issues: Assaultive/Threatening Behavior: No Medical Concerns: No Client engaged in active self harm w/weapon: No Threatening to run away: No Child reported abuse/neglect: No Voluntarily presenting for services: No Domestic violence is a concern: No Extreme Psychosis or extreme behavior is present: No Impression Client is a 27 year old, single, male who was previously living at [facility] however, due to his not taking medications and mental health deterioration the client was acting out in bizarre ways in the community i.e. opening a package of razors at a drug store and trying to shave his mckeon and then going behind the store counter and trying on sunglasses and as a result the client was asked to not return until he has received treatment and stabilized. Client is unknown to [facility]. Client has been refusing to complete intake paperwork.. Client is currently on involuntary status on MH warrant awaiting for placement. Client's second certification passed. This am the ED provider, Dr. Torre reported that the client was a little agitated this am so was offered a Zyprexa which he took orally without incident. When this clinician went to assess him he was sleeping but was able to moderately answer questions due to sedation. He reported he was cold and that he had a good conversation with his mother today although still stated she is delusional and has many mental health issues herself. Client reported he slept and ate better than usual and denied SI and HI. He is still feeling claustrophobic in the room he is in and would like to get out as soon as possible. Plan/Disposition Recommended Disposition: Hospitalization facilities contacted. Plan: At just before noon today the client was accepted by [facility] and transportation was completed by [facility] @ [id number]. [facility] has been alerted. Person reported agreement to plan: No Facilities contacted if Applicable [facility] Accepted, Other. Information Sent to [facility]: Referral Reports/communication Outcome discussed with: ED/Personnel Final Disposition/Discharge Final accepting facility/transferred to: [facility] Transportation Checklist completed and faxed: Yes Transport level: acetone recovery worker
== END 2022-10-15 15:38 ==
PROVIDERS: Physician Assistant; Emergency Provider Emergency Medicine
DX: F31.9 Bipolar disorder, unspecified (principal); Z91.14 Patient's other noncompliance with medication regimen; R45.851 Suicidal ideations; F20.9 Schizophrenia, unspecified; D72.829 Elevated white blood cell count, unspecified; Z79.899 Other long term (current) drug therapy
CPT/HCPCS: 80053; 80307; 87635; 96372; 99285; 80320; 80329; 81003; 81015; 82542; 84443; 85025; J1630; J3490